=== PATIENT | male | born 1965 | race Two or more races ===

== ENCOUNTER 2024-06-15 17:56 | Emergency (ER) | payer MEDICAID, SELFPAY ==
[2024-06-15 17:57] VITALS: BMI 35.5
[2024-06-15 19:11] VITALS: BP 170/95; PULSE 77; RESP 18; TEMP 36.7; O2SAT 99
--- NOTE | 2024-06-15 19:16 | PD.EDRME ---
Rapid Medical Screening Exam RME Arrival date/time: 06/15/24 17:56 59-year-old male past medical history of CAD on daily aspirin presents emergency department complaining of epistaxis to left nostril that started yesterday has not resolved. Chief Complaint: Epistaxis/Nasal Foreign Body Time Seen by Provider: 06/15/24 18:09 Vital signs: Vital Signs Temperature 98.0 F 06/15/24 19:11 Pulse Rate 77 06/15/24 19:11 Respiratory Rate 18 06/15/24 19:11 Blood Pressure 170/95 H 06/15/24 19:11 Pulse Oximetry (%) 99 06/15/24 19:11 Oxygen Delivery Method Room Air 06/15/24 19:11 Vital signs reviewed by provider: Yes
[2024-06-15 20:01] LABS: Basophils % (Auto) 0 % (0-2.5); Eosinophils # (Auto) 0.2 Thou/mm3 (0.0-0.5); Eosinophils % (Auto) 3 % (0-10); Hematocrit 48.3 % (41.0-53.0); Hemoglobin 16.7 g/dL (13.5-16.0); Immature Granulocytes % (Auto) 0 % (0-0); Immature Granulocytes Auto 0.02 Thou/mm3 (0.00-0.00); Lymphocytes # (Auto) 1.8 Thou/mm3 (1.0-4.8); Lymphocytes % (Auto) 23 % (10-50); Mean Corpuscular HGB Conc 34.6 g/dl (31.0-37.0); Mean Corpuscular Hemoglobin 29.3 pg (25.0-35.0); Mean Corpuscular Volume 85 fL (80-100); Monocytes # (Auto) 0.9 Thou/mm3 (0.0-0.8); Monocytes % (Auto) 11 % (0-12); Neutrophils # (Auto) 5.1 Thou/mm3 (1.8-7.7); Neutrophils % (Auto) 63 % (37-80); Nucleated Red Blood Cell % 0 /100 WBC (0); Platelet Count 136 Thou/mm3 (140-440); RDW Standard Deviation 39.9 fL (35.1-43.9); White Blood Count 8.1 Thou/mm3 (3.8-10.6)
[2024-06-15 20:08] LABS: Partial Thromboplastin Time 27.7 Seconds (22.0-36.0); Prothrombin Time 11.1 Seconds (9.0-12.2)
[2024-06-15 20:22] LABS: Alanine Aminotransferase 35 U/L (10-49); Albumin, Serum 4.2 gm/dL (3.5-5.0); Albumin/Globulin Ratio 1.4 (1.2-2.2); Alkaline Phosphatase 89 U/L (46-116); Anion Gap 6 (7-16); Aspartate Amino Transferase 27 U/L (0-34); BUN/Creatinine Ratio 20 Ratio (12-20); Bilirubin,Total 0.7 mg/dL (0.3-1.2); Blood Urea Nitrogen 18 mg/dL (9-23); Calcium 9.2 mg/dL (8.3-10.6); Calcium (Corrected) 9.2 mg/dL (8.5-10.1); Carbon Dioxide 32.3 mMol/L (20.0-31.0); Chloride 106 mMol/L (98-107); Creatinine (Component) 0.9 mg/dL (0.6-1.3); Estimated Creatinine Clearance 97.7 mL/min (>60); Glucose 143 mg/dL (74-106); Osmolality,Calculated 290 (275-295); Potassium 3.8 mMol/L (3.4-5.1); Sodium 144 mMol/L (136-145); Total Protein 7.2 gm/dL (5.7-8.2); eGFR > 60 See Note
--- NOTE | 2024-06-15 21:46 | PD.EDEPIST ---
ED Epistaxis RME/HPI General Chief complaint: Epistaxis/Nasal Foreign Body Stated complaint: EPISTAXIS SINCE YESTERDAY Time Seen by Provider: 06/15/24 18:09 Source: patient Arrival date/time: 06/15/24 17:56 59-year-old male past medical history of CAD on daily aspirin presents emergency department complaining of epistaxis to left nostril that started yesterday has not resolved. Patient denies any fever, chills, recent trauma, headache, blurry vision, or any other associated symptom. Mode of arrival: ambulatory Limitations: no limitations RME / HPI RME / HPI Narrative: 06/15/24 17:56 59-year-old male past medical history of CAD on daily aspirin presents emergency department complaining of epistaxis to left nostril that started yesterday has not resolved. Related Data Previous Rx's ?Medication ?Instructions ?Recorded aspirin 81 mg tablet,delayed 81 mg PO QDAY #30 tabs 07/10/18 release (Adult Aspirin Regimen) carvedilol 6.25 mg tablet (Coreg) 6.25 mg PO BID #60 tabs 07/10/18 furosemide 40 mg tablet (Lasix) 40 mg PO BID #60 tabs 07/10/18 lisinopril 40 mg tablet 40 mg PO QDAY #30 tabs 07/10/18 potassium chloride 20 mEq 20 meq PO QDAY #30 tabs 07/10/18 tablet,extended release(part/cryst) simvastatin 20 mg tablet (Zocor) 20 mg PO QPM #30 tabs 07/10/18 Allergies Allergy/AdvReac Type Severity Reaction Status Date / Time No Known Allergies Allergy Verified 07/05/18 14:40 Review of Systems Review of Systems Systems Reviewed: All systems reviewed, normal except as documented Constitutional Constitutional: Reports system reviewed and no additional complaints, except as documented, Denies body ache(s), Denies chills and Denies fever(s) Eyes Eyes: Reports system reviewed and no additional complaints, except as documented and Denies change in vision ENT Ears, Nose, Mouth, and Throat: Reports system reviewed and no additional complaints, except as documented, Denies disequilibrium, Denies dizziness, Reports epistaxis, Denies sore throat and Denies vertigo Cardiovascular Cardiovascular: Reports system reviewed and no additional complaints, except as documented, Denies chest pain and Denies dyspnea Respiratory Respiratory: Reports system reviewed and no additional complaints, except as documented, Denies chest congestion, Denies cough and Denies dyspnea Gastrointestinal Gastrointestinal: Reports system reviewed and no additional complaints, except as documented, Denies abdominal pain, Denies nausea and Denies vomiting Musculoskeletal Musculoskeletal: Reports system reviewed and no additional complaints, except as documented, Denies abnormal gait and Denies arthralgias Integumentary/Breasts Skin/Breast: Reports system reviewed and no additional complaints, except as documented, Denies erythema, Denies rash and Denies wounds Neurologic Neurologic: Reports system reviewed and no additional complaints, except as documented, Denies abnormal gait, Denies disequilibrium, Denies dizziness and Denies vertigo Past Medical History Past Medical History CARDIAC: Positive Cardiac Disorders, Hypercholesterolemia, Congestive Heart Failure and Hypertension RESPIRATORY: Negative Chronic Obstructive Pulmonary Disease (COPD) GENITOURINARY: Negative Renal Disease ENDOCRINE: Negative Diabetes Mellitus Type 1 or Diabetes Mellitus Type 2 Family History FAMILY HISTORY: Positive Family Cardiac Disorders Social History SMOKING STATUS: Never smoker ED Exam General Limitations: Present no limitations General appearance: Present alert and in no apparent distress Head Head exam: Present atraumatic Eye Eye exam: Present normal appearance, PERRL and EOMI ENT ENT exam: Present normal exam, normal oropharynx and mucous membranes moist Expanded ENT Exam Nose exam: Present other (No active bleeding observed to left nostril but dried blood observed.); Absent nasal deviation, septal hematoma, laceration or abrasion Nasal speculum exam: Left: epistaxis (Dried blood no active bleeding) Neck Neck exam: Present normal inspection, full ROM and trachea midline Chest Chest inspection: Present normal inspection and symmetric chest wall rise Respiratory Respiratory exam: Present normal lung sounds bilaterally Cardiovascular Cardiovascular exam: Present regular rate, normal rhythm and normal heart sounds Abdominal Exam Abdominal exam: Present soft and normal bowel sounds Extremities Exam Extremities exam: Present normal inspection and full ROM Back Exam Back exam: Present normal inspection and full ROM Neurological Exam Neurological exam: Present alert, oriented X3 and CN II-XII intact Psychiatric Psychiatric exam: Present normal affect and normal mood Skin Skin exam: Present warm, dry, intact and normal color Course Quality Measures none Orders Category Date Time Status CBC Stat Lab 06/15/24 19:31 Completed CMP [Comprehensive Metabolic Panel] Stat Lab 06/15/24 19:31 Completed PT [Prothrombin Time with INR] Stat Lab 06/15/24 19:31 Completed PTT [Partial Thromboplastin Time] Stat Lab 06/15/24 19:31 Completed hydrALAZINE HCL [Apresoline] Med 06/15/24 22:11 Discontinued 25 mg PO X1 ONE Vital Signs Vital signs: Vital Signs Temperature 98.0 F 06/15/24 19:11 Pulse Rate 77 06/15/24 19:11 Respiratory Rate 18 06/15/24 19:11 Blood Pressure 170/95 H 06/15/24 19:11 Pulse Oximetry (%) 99 06/15/24 19:11 Oxygen Delivery Method Room Air 06/15/24 19:11 Epistaxis MDM Narrative MDM Narrative:: 59-year-old male past medical history of CAD on daily aspirin presents emergency department complaining of epistaxis to left nostril that started yesterday has not resolved. Patient denies any fever, chills, recent trauma, headache, blurry vision, or any other associated symptom. CBC was unremarkable for any anemia or low platelets. CMP was unremarkable as well. Coags were within normal limits. Patient was no longer bleeding to left nostril dried blood was observed no obvious lacerations or abrasions observed to left nasal passage. Instructed patient to do not take aspirin until he sees his primary care provider on Sunday and return to emergency department for any worsening symptoms or as needed. Patient data External records reviewed:: [facility] previous records Clinical information provided by:: patient Social determinants that could affect healthcare access:: none Patient has the following chronic illnesses:: See chart How is presenting disease/condition affected by chronic disease/condition?: exacerbated by Evaluation data The following diagnostics were reviewed and interpreted by me:: lab results Lab and/or radiology exams considered but not ordered:: Ordered Interpretation Summary: Interpreted by me Medications / Prescriptions Medications or Prescriptions considered but not ordered:: Ordered Medication administrations:: Medication Administration History Discontinued Medications Hydralazine HCl (Hydralazine Hcl 25 Mg Tablet) 25 mg PO X1 ONE Stop: 06/15/24 22:12 Last Admin: 06/15/24 22:29 Dose: 25 mg Documented By: KF Given Consultations Consultation(s) initiated? (list below): No Diagnosis Epistaxis Differential Diagnosis: nasal bone fracture, anterior epistaxis and posterior epistaxis Most likely diagnosis given after review of the tests above:: Epistaxis Admission Indicated Admission indicated?: not indicated Admission Request Was there a request for admission?: No Disposition Plan Disposition Plan: Discharge Discharge Attestation Discharge Attestation: The patient and all family members were given an opportunity to ask questions and understood the discharge instructions. Discharge instructions specifically effects, indications for sooner follow up or return to the emergency department, and the expected course of current diagnosis. Patient condition: Stable Discharge Plan Plan Patient Disposition: HOME (Self Care) Disposition Comment: Stable Prescriptions/Referrals Prescriptions/Med Rec: No Action aspirin [Adult Aspirin Regimen] 81 mg tablet,delayed release (DR/EC) 81 mg PO QDAY Qty: 30 0RF carvedilol [Coreg] 6.25 mg tablet 6.25 mg PO BID Qty: 60 0RF Rx Instructions: must administer with a meal/food lisinopril 40 mg tablet 40 mg PO QDAY Qty: 30 0RF furosemide [Lasix] 40 mg tablet 40 mg PO BID Qty: 60 0RF potassium chloride 20 mEq tablet,ER particles/crystals 20 meq PO QDAY Qty: 30 0RF simvastatin [Zocor] 20 mg tablet 20 mg PO QPM Qty: 30 0RF Referrals: No Primary/Family,Physician [Primary Care Provider] - In 1 week Problem List Clinical Impression: Epistaxis Patient/Caregiver Discharge Instructions Discharge Activity: activity as tolerated Education Materials: Nosebleed, ED Epistaxis (Adult) Additional Instructions: Do not take aspirin until you see your primary care provider on Sunday as discussed. Follow-up with your primary care provider on Sunday as discussed. Return to emergency department for any worsening symptoms or as needed. Print Language: Com[place]an Stand Alone Forms: Jo Award Info., Patient Portal Info Letter PA/MANDI Supervising Physician PA/MANDI Supervising Physician: Dr. Gomez
[2024-06-15 22:12] VITALS: BP 185/105; BP 193/113; PULSE 93; RESP 20; TEMP 36.9; O2SAT 95
[2024-06-15 22:29] VITALS: BP 193/113; PULSE 93
[2024-06-15] MEDS: hydrALAZINE HCL 25 MG TABLET PO (22:29)
== END 2024-06-15 22:36 | disposition home or self-care (01) ==
DX: R04.0 Epistaxis (principal)
CPT/HCPCS: 36415; 80053; 85025; 85610; 85730; 99283; A9270